=== PATIENT | female | born 1965 | race Caucasian/White ===

== ENCOUNTER 2018-03-23 06:39 | Day surgery (SDC) | payer BC ==
[~2018-03-23] VITALS: Ht 157.5 cm; Wt 72.6 kg
[~2018-03-23 06:39] MED LIST: CIPROFLOXACN500 MG PO; PERCOCET1 TA2 PO; SYNTHROID100 MCG PO
[2018-03-23 08:21] VITALS: BP 125/87
== END 2018-03-23 08:39 | disposition home or self-care (01) | DRG 951 ==
LOC: ENDO 06:39
PROVIDERS: ATTEND Surgery
PROC: 0DJD8ZZ Inspection of Lower Intestinal Tract, Via Natural or Artificial Opening Endoscopic (ICD-10-PCS; principal; 2018-03-23)
DX: Z12.11 Encounter for screening for malignant neoplasm of colon (principal); K64.4 Residual hemorrhoidal skin tags; Z80.0 Family history of malignant neoplasm of digestive organs